=== PATIENT | female | born 1990 | race African-American/Black ===

== ENCOUNTER 2017-02-13 01:12 | Inpatient (IN) | payer MEDICAID ==
[~2017-02-13] VITALS: Ht 165.1 cm; Wt 224.1 kg
[2017-02-13] MEDS ORDERED: ALBUTEROL (0.083%) 2.5MG/3ML NEB HHN STA (02:34)
[2017-02-13] MEDS ORDERED: SODIUM CHLORIDE 0.9% 1,000 ML IV ONE (02:34)
[2017-02-13 03:16] LABS: CHLORIDE 99 mEq/L (98-107)
[2017-02-13 03:24] LABS: CARBON DIOXIDE 38 mEq/L (21-32)
[2017-02-13 03:31] LABS: EOSINOPHILS % 2.7 % (0.0-5.0); HEMATOCRIT. 37.9 % (36.0-48.0); HEMOGLOBIN. 10.8 g/dL (12.0-16.0); LYMPHOCYTES % 28.2 % (20.0-50.0); MEAN CORPUSCULAR HEMOGLOBIN 22.3 pg (28.0-32.0); MONOCYTES % 5.8 % (2.0-8.0); NEUTROPHILS % 62.3 % (40.0-76.0); PLATELET 289 x1000/uL (130-400); RED BLOOD CELL COUNT 4.86 mill/uL (4.2-5.4); RED CELL DISTRIBUTION WIDTH 19.9 % (11.6-14.6)
[2017-02-13] MEDS ORDERED: AZITHROMYCIN 500 MG in DEXT 5% WATER 250 ML IV ONE (04:45)
[2017-02-13] MEDS ORDERED: CEFTRIAXONE 1 G PREMIX 50 ML IV ONE (04:45)
[2017-02-13] MEDS ORDERED: SODIUM CHLORIDE 0.9% 1,000 ML IV SCH (04:58)
[2017-02-13] MEDS ORDERED: CEFTRIAXONE 1 G PREMIX 50 ML IV SCH (10:45)
[2017-02-13] MEDS ORDERED: CLONIDINE 0.1MG TABLET PO PRN (10:45)
[2017-02-13] MEDS ORDERED: AZITHROMYCIN 500 MG in DEXT 5% WATER 250 ML IV SCH (10:45)
[2017-02-13] MEDS ORDERED: ONDANSETRON HCL 4MG/2ML VIAL IV PRN (10:45)
[2017-02-13] MEDS ORDERED: IPRATROPIUM/ALBUTEROL 0.5-3(2.5)MG/3ML NEB INH PRN (10:45)
[2017-02-13] MEDS ORDERED: MAGNESIUM/ALUMINUM HYDROXIDE/SIMETHICONE 30ML UDC PO PRN (10:45)
[2017-02-13] MEDS ORDERED: DOCUSATE SODIUM 100MG CAPSULE PO PRN (10:45)
[2017-02-13 11:00] VITALS: BP 127/86
[2017-02-13] MEDS: ENOXAPARIN 40MG/0.4ML SYR SUBCUT SCH ×2 (11:31→22:10)
[2017-02-13 12:00] VITALS: BP 127/86
[2017-02-13] MEDS ORDERED: MORPHINE SULFATE 4 MG/ML CPJ (NOT FOR IM USE) IV PRN (12:00)
[2017-02-13 16:00] VITALS: BP 110/65
[2017-02-13 17:14] LABS: BG BASE EXCESS 12.9 mmol/L (-2.0-2.0); BG CARBOXYHEMOGLOBIN 0.7 % (0.5-1.5); BG DEOXYHEMOGLOBIN 7.1 % (0.0-5.0); BG FRACTION INSPIRED OXYGEN 28; BG HCO3 ACT 41.8 mmol/L (22.0-26.0); BG METHEMOGLOBIN 0.3 % (0.0-1.5); BG OXYGEN SATURATION 92.8 % (92.0-98.5); BG OXYHEMOGLOBIN 91.9 % (94.0-97.0); BG PCO2 82.6 mmHg (35.0-45.0); BG PH 7.322 (7.350-7.450); BG PO2 70.3 mmHg (75.0-100.0); BG SAMPLE SITE LEFT RADIAL; BG TOTAL HEMOGLOBIN 10.7 g/dL (12.0-18.0); BG VENT MODE MASK - TRACH
[2017-02-13 20:00] VITALS: BP 109/63
[2017-02-13] MEDS: IPRATROPIUM/ALBUTEROL 0.5-3(2.5)MG/3ML NEB HHN SCH (20:07)
[2017-02-14] VITALS: BP 120/64
[2017-02-14] MEDS: IPRATROPIUM/ALBUTEROL 0.5-3(2.5)MG/3ML NEB HHN SCH ×4 (01:01→21:15)
[2017-02-14 04:00] VITALS: BP 103/62
[2017-02-14] MEDS: AZITHROMYCIN 500MG in DEXTROSE 5% WATER 250ML IV SCH (04:49)
[2017-02-14] MEDS: CEFTRIAXONE 1 G PREMIX 50 ML IV SCH (06:31)
[2017-02-14 08:00] VITALS: BP 111/56
[2017-02-14] MEDS: ENOXAPARIN 40MG/0.4ML SYR SUBCUT SCH ×2 (08:37→20:24)
[2017-02-14 10:15] LABS: BASOPHILS % 1.2 % (0.0-2.0); EOSINOPHILS % 2.9 % (0.0-5.0); HEMATOCRIT. 35.2 % (36.0-48.0); HEMOGLOBIN. 10.3 g/dL (12.0-16.0); LYMPHOCYTES % 35.9 % (20.0-50.0); MEAN CORPUSCULAR HEMOGLOBIN 22.6 pg (28.0-32.0); MEAN CORPUSCULAR VOLUME 77.5 fL (81.0-99.0); MEAN PLATELET VOLUME 8.6 fl (7.4-10.4); MONOCYTES % 7.4 % (2.0-8.0); NEUTROPHILS % 52.6 % (40.0-76.0); PLATELET 275 x1000/uL (130-400); RED BLOOD CELL COUNT 4.54 mill/uL (4.2-5.4)
[2017-02-14 10:25] LABS: HCG SCREEN NEGATIVE
[2017-02-14 10:39] LABS: CARBON DIOXIDE 38 mEq/L (21-32); CHLORIDE 102 mEq/L (98-107); CREATINE KINASE 72 IU/L (26-192); HDL CHOLESTEROL 25 mg/dL (40-59); LDL CHOLESTEROL 64 mg/dL (5-100); TOTAL IRON BINDING CAPACITY 391 ug/dL (250-450); TROPONIN I 0.03 ng/mL (0.00-0.04)
[2017-02-14 10:43] LABS: CREATINE KINASE MB FRACTION 0.9 ng/mL (0.5-3.6)
[2017-02-14] MEDS: BUDESONIDE 0.5MG/2ML NEB HHN SCH ×2 (10:45→21:15)
[2017-02-14 12:00] VITALS: BP 121/64
[2017-02-14 15:22] LABS: CLARITY URINE CLEAR (CLEAR); COLOR URINE YELLOW (YELLOW); KETONES URINE NEGATIVE (NEGATIVE); LEUKOCYTE ESTERASE URINE TRACE (NEGATIVE); NITRITE URINE NEGATIVE (NEGATIVE); OCCULT BLOOD URINE TRACE (NEGATIVE); PROTEIN URINE NEGATIVE (NEGATIVE); SPECIFIC GRAVITY URINE 1.004 (1.005-1.030); UROBILINOGEN URINE 0.2 E.U./dL (0.2-1.0)
[2017-02-14 15:26] VITALS: BP 108/71
[2017-02-14] MEDS ORDERED: FUROSEMIDE 40MG/4ML VIAL IVP SCH ×2 (15:30→21:00)
[2017-02-14 15:38] LABS: *AMPHETAMINES SCREEN URINE NEGATIVE (NEGATIVE); *BARBITURATES SCREEN URINE NEGATIVE (NEGATIVE); *BENZODIAZEPINES SCREEN URINE NEGATIVE (NEGATIVE); *COCAINE SCREEN URINE NEGATIVE (NEGATIVE); CANNABINOID URINE SCREEN NEGATIVE (NEGATIVE); METHADONE URINE SCREEN NEGATIVE (NEGATIVE); OPIATES URINE SCREEN NEGATIVE (NEGATIVE); PHENCYCLIDINE URINE SCREEN NEGATIVE (NEGATIVE)
[2017-02-14] MEDS ORDERED: HYDROCODONE/ACETAMINOPHEN 5/325MG TABLET PO PRN (15:45)
[2017-02-14 20:00] VITALS: BP 129/59
[2017-02-15] VITALS (7 sets, daily range): BP systolic 99–138; BP diastolic 32–63
[2017-02-15] MEDS: AZITHROMYCIN 500MG in DEXTROSE 5% WATER 250ML IV SCH (05:33)
[2017-02-15] MEDS: CEFTRIAXONE 1 G PREMIX 50 ML IV SCH (06:19)
[2017-02-15] MEDS: BUDESONIDE 0.5MG/2ML NEB HHN SCH (08:21)
[2017-02-15] MEDS: IPRATROPIUM/ALBUTEROL 0.5-3(2.5)MG/3ML NEB HHN SCH ×2 (08:22→15:21)
[2017-02-15] MEDS: PIPERACILLIN/TAZ 3.375G PREMIX 50 ML IV SCH ×2 (10:46→17:00)
[2017-02-15] MEDS: ENOXAPARIN 40MG/0.4ML SYR SUBCUT SCH ×2 (10:46→20:19)
== END 2017-02-15 21:20 | disposition home or self-care (01) | DRG 139 ==
LOC: ER 01:12 → 8WST 04:59 → EDBEDREQ 05:03 → EDBEDREQTM 05:03 → ENRESERV 09:28
PROVIDERS: ADMIT Internal Medicine; ATTEND Internal Medicine
DX: J18.9 Pneumonia, unspecified organism (principal); J96.20 Acute and chronic respiratory failure, unspecified whether with hypoxia or hypercapnia; I50.33 Acute on chronic diastolic (congestive) heart failure; Z93.0 Tracheostomy status; I11.0 Hypertensive heart disease with heart failure; D50.9 Iron deficiency anemia, unspecified; E66.2 Morbid (severe) obesity with alveolar hypoventilation; G47.33 Obstructive sleep apnea (adult) (pediatric); J45.909 Unspecified asthma, uncomplicated; M79.3 Panniculitis, unspecified; Z87.891 Personal history of nicotine dependence; Z91.19 Patient's noncompliance with other medical treatment and regimen; Z88.8 Allergy status to other drugs, medicaments and biological substances; Z68.45 Body mass index [BMI] 70 or greater, adult; E44.1 Mild protein-calorie malnutrition
CPT/HCPCS: 36415; 36600; 71045; 76705; 80048; 80053; 80061; 80305; 81001; 81025; 82375; 82550; 82553; 82805; 83540; 83550; 83605; 83735; 83880; 84443; 84484; 84703; 85025; 87040; 87070; 87077; 87186; 87804; 92610; 93005; 93970; 94640; 96365; 99285; J0456; J0696; J1650; J1940; J2270; J2543; J7030; J7040; J7060; J7611; J7620; J7626